=== PATIENT | male | born 1985 | race Caucasian/White ===

== ENCOUNTER → 2021-02-23 12:14 | Outpatient (BNVA) | payer OTHER, SELFPAY | PROVIDERS: PCP Internal Medicine; Visit Provider Physician Assistant | DX: S76.112A Strain of left quadriceps muscle, fascia and tendon, initial encounter (principal); X58.XXXA Exposure to other specified factors, initial encounter | CPT/HCPCS: 99203 ==

== ENCOUNTER 2022-04-20 09:58 | Emergency (ER) | payer OTHER, SELFPAY ==
--- NOTE | ~2022-04-20 | CT_ITS ---
EXAMINATION: CT ABDOMEN AND PELVIS WITHOUT CONTRAST CLINICAL INFORMATION: Bilateral lower quadrant pain. COMPARISON: CT abdomen dated from 02/06/2007. TECHNIQUE: Multidetector volumetric imaging was performed from the superior aspect of the liver through the pubic symphysis. Sagittal and coronal reformatted images were obtained on the technologist's workstation. This CT examination was performed using dose optimization techniques as appropriate, variously including the following: *Automated exposure control *Adjustment of mA and/or kV according to patient size (this includes techniques or standardized protocols for targeted exams where dose is matched to indication/reason for exam; i.e. extremities or head) *Use of iterative reconstruction technique DLP: 781 mGy-cm FINDINGS: LUNG BASES: Punctate nodule in the right lower lobe (4:107). No focal consolidation or pleural effusion. LIVER, GALLBLADDER, AND BILIARY TREE: The liver measures 20 cm craniocaudally and demonstrates decrease parenchymal attenuation, most suggestive of hepatic steatosis. No discrete focal lesions are identified in this limited noncontrast examination. Normal appearance of the gallbladder. No pericholecystic inflammatory changes. No biliary ductal dilatation. PANCREAS: Unremarkable. SPLEEN: Unremarkable. ADRENAL GLANDS: Unremarkable. KIDNEYS AND URETERS: Limited noncontrast examination. No nephrolithiasis or hydronephrosis. No significant perinephric fat stranding. BLADDER: Unremarkable. GASTROINTESTINAL TRACT: Wall thickening and significant fat stranding centered around several diverticuli in the sigmoid colon, most consistent with acute diverticulitis. No drainable collection at this time. No pneumoperitoneum. Remainder of the bowel is within normal limits. Postsurgical changes from prior appendectomy. ABDOMINAL WALL: Small bilateral fat-containing inguinal hernias. LYMPH NODES: No lymphadenopathy by size criteria. VASCULAR: Normal caliber of the abdominal aorta. PELVIC VISCERA: Normal appearance of the prostate gland and seminal vesicles. OSSEOUS STRUCTURES: No acute or aggressive appearing osseous abnormalities. CT/CT abdomen pelvis wo IV con IMPRESSION: Findings are most consistent with acute sigmoid diverticulitis. Hepatomegaly and hepatic steatosis. Punctate nodule in the right lower lobe. Assuming patient has no history of malignancy, recommend follow-up per Fleischner Society recommendations. According to the UPDATED 2017 Fleischner Society recommendations, the advised followup imaging for solid nodules < 6 mm is: LOW RISK PATIENT: No routine follow up. HIGH RISK PATIENT: Optional CT at 12 months.
[2022-04-20 11:11] VITALS: BP 138/96; PULSE 78; RESP 18; TEMP 36.6; O2SAT 99; BMI 37.4
[2022-04-20 11:31] LABS: Appearance Urine Clear; Color Urine Yellow; Glucose Urine UA Negative (Negative); Leukocyte Esterase Urine Negative (Negative); Nitrite Urine Negative (Negative); PH 5.5 (5.0-9.0); Specific Gravity - Urine 1.025 (1.005-1.025); Urine Blood Negative (Negative); Urine Ketones Negative (Negative); Urine Protein Negative (Neg-Trace)
[2022-04-20 12:58] LABS: MANUAL DIFF FLAG NO
[2022-04-20 13:17] LABS: Basophils Absolute Auto 0.1 X10*3/uL (0.0-0.2); Basophils Percent Auto 0.4 % (0-2); Eosinophils Absolute Auto 0.4 X10*3/uL (0.0-0.4); Eosinophils Percent Auto 2.9 % (0-4); Hematocrit 41.7 % (42.0-52.0); Hemoglobin 14.9 g/dl (14.0-18.0); Imm Gran Abs Auto 0.05 X10*3/uL (0.00-0.03); Imm Gran Pct Auto 0.4 % (0.0-0.4); Lymphocytes Absolute Auto 1.3 X10*3/uL (1.2-4.9); Lymphocytes Percent Auto 10.1 % (20-40); Mean Corpuscular HGB Conc 35.7 g/dl (31.0-36.0); Mean Corpuscular Hemoglobin 31.6 pg (27.0-33.0); Mean Corpuscular Volume 88.5 fL (80.0-98.0); Mean Platelet Volume 9.8 fL (9.4-12.4); Monocytes Absolute Auto 1.3 X10*3/uL (0.1-1.2); Monocytes Percent Auto 10.2 % (2-11); Neutrophils Absolute Auto 9.9 x10*3/uL (2.0-8.3); Platelet Count 192 X10*3/uL (160-400); Red Blood Count 4.71 X10*6/uL (4.60-5.80); Red Cell Distribution Width 11.6 % (11.0-16.0)
[2022-04-20 13:18] LABS: Alanine Aminotransferase 25 U/L (0-40); Albumin Level 4.2 g/dL (3.5-5.0); Alkaline Phosphatase 67 U/L (39-117); Anion Gap 13 (12-20); Aspartate Amino Transferase 15 U/L (5-37); Bilirubin Direct 0.3 mg/dL (0.0-0.5); Bilirubin Total 0.9 mg/dL (0.0-1.0); Blood Urea Nitrogen 16 mg/dL (9-16); Calcium 9.3 mg/dL (8.4-10.2); Carbon Dioxide 27 mmol/L (22-29); Chloride 104 mmol/L (96-108); Creatinine Clr Calc Pharmacy 119.6; Estimated Glomerular Filt Rate > 60; Glucose Random 97 mg/dL (60-115); Lipase 8 U/L (8-78); Potassium 4.1 mmol/L (3.3-5.1); Sodium 140 mmol/L (135-145); Total Protein 6.8 g/dL (6.5-8.0)
--- NOTE | 2022-04-20 13:38 | ED.ABDPAIN ---
HPI - Abdominal Pain General Chief Complaint: Abdominal Pain Stated Complaint: sent from Urgent care need Ct scan Time Seen by Provider: 04/20/22 11:31 Source: patient Mode of arrival: ambulatory Limitations: no limitations History of Present Illness HPI narrative: 37 yo male no PMH, no prior colonoscopy went out on Monday night for a bachelor green party - ate a steak. The next day he had diarrhea and thought it was related to the fact that he doesn't normally eat red meat. He then has had persistent loose non-bloody stools along with lower abdominal discomfort and pressure. No prior episodes of this in the past MD elicited complaint: abdominal pain Pertinent past history: none Onset (ago): day(s) (since Monday) Pain Consistency: constant Location: periumbilical Severity: mild Quality: aching and fullness Radiation: none Migration to: no migration Exacerbating factors: movement Relieving factors: nothing Associated symptoms: diarrhea and chills Related Data Previous Rx's Medication Instructions Recorded amoxicillin 875 mg-potassium 1 tab PO BID #14 tabs 04/20/22 clavulanate 125 mg tablet ondansetron 4 mg disintegrating 4 mg PO Q8H PRN nausea and 04/20/22 tablet vomiting #20 tabs Allergies Allergy/AdvReac Type Severity Reaction Status Date / Time No Known Allergies Allergy Unknown Unverified 04/23/20 16:32 Review of Systems Review of Systems Constitutional : No Weight loss, No Fever, pos Chills ENT/Mouth : No sore throat, No Rhinorrhea Eyes: No Swelling, No Redness Cardiovascular : No Chest Pain, No SOB, NoEdema Respiratory : No Cough, No Sputum, No Wheezing Gastrointestinal : no Nausea, no Vomiting, positive Diarrhea, positive abdominal Pain, No Hematochezia, No Melena Genitourinary : No Dysuria, No Urinary Frequency, No Hematuria, No Urgency Musculoskeletal : No joint pain, No Myalgias, No Joint Swelling Skin : No Skin Lesions, No rash Neuro : No Weakness, No Numbness, No Dizziness, No Headache Psych : No Anxiety/Panic, No Depression Heme/Lymph: No Bruising, No Lymphadenopathy Endocrine : No Polyuria, No Polydipsia All other systems reviewed and are negative. [facility] Past Medical History Attestation statement: The following information was validated with the patient. Medical History No pertinent past medical history Surgical History S/P appendectomy Social History Social History (Updated 04/20/22 @ 13:45 by Hillary Emerson DO) Patient Tobacco Use Status: Never used Tobacco Advance Directives: No Advance Directives Information Provided: No Physical Exam ED Vital Signs: Vital Signs - 24 hr 04/20/22 11:11 04/20/22 14:28 Temperature 97.9 F Pulse Rate 78 85 Respiratory Rate 18 16 Blood Pressure 138/96 H 137/93 H Pulse Oximetry 99 100 Oxygen Delivery Method Room Air Room Air BMI result Body Mass Index 37.4 Appearance: Alert. Oriented X3. No acute distress. Eyes: Pupils equal, round and reactive to light. ENT: Pharynx normal. Neck: Normal inspection. Neck supple. CVS: Normal heart rate and rhythm. Pulses normal. Respiratory: No respiratory distress. Breath sounds normal. Abdomen: Soft and mild lower abdominal ttp no rebound or guarding. Skin: Skin warm and dry. Normal skin color. Normal skin turgor. Extremities: No lower extremity edema. No calf ttp Neuro: Oriented X 3. No motor deficit. No sensory deficit. Course Course Course Narrative: mild pain tolerating PO can no vomiting - stable for outpatient management MDM - Abdominal Pain MDM Narrative Medical decision making narrative: 37 yo male with hx of prior appendectomy that had to be opened mid procedure due to knicking of artery - at this time the patient has lower abdominal pain and diarrhea. Will need labs, IVF, CT scan for diverticulitis/colitis. He declines pain medications Lab Data Result diagrams: 04/20/22 12:55 04/20/22 12:55 Labs: Lab Results 04/20/22 04/20/22 04/20/22 Range/Units 11:25 12:55 12:55 WBC Cancelled RBC Cancelled Hgb Cancelled Hct Cancelled MCV Cancelled MCH Cancelled MCHC Cancelled RDW Cancelled Plt Count Cancelled MPV Cancelled Immature Gran % (Auto) (0.0-0.4) % Neut % (Auto) (45-73) % Lymph % (Auto) (20-40) % [place] % (Auto) (2-11) % Eos % (Auto) (0-4) % Baso % (Auto) (0-2) % Lymph # (Auto) (1.2-4.9) X10*3/uL [place] # (Auto) (0.1-1.2) X10*3/uL Eos # (Auto) (0.0-0.4) X10*3/uL Baso # (Auto) (0.0-0.2) X10*3/uL Abs Immat Gran (auto) (0.00-0.03) X10*3/uL Absolute Neuts (auto) (2.0-8.3) x10*3/uL Absolute Nucleated RBC Cancelled Nucleated RBC % (auto) Cancelled Sodium Cancelled Potassium Cancelled Chloride Cancelled Carbon Dioxide Cancelled Anion Gap Cancelled BUN Cancelled Creatinine Cancelled Estim Creat Clear Calc Cancelled Estimated GFR Cancelled Random Glucose Cancelled Lactic Acid (0.5-2.0) mmol/L Calcium Cancelled Total Bilirubin (0.0-1.0) mg/dL Direct Bilirubin (0.0-0.5) mg/dL AST (5-37) U/L ALT (0-40) U/L Alkaline Phosphatase (39-117) U/L Total Protein (6.5-8.0) g/dL Albumin (3.5-5.0) g/dL Lipase (8-78) U/L Urine Color Yellow Urine Appearance Clear Urine pH 5.5 (5.0-9.0) Ur Specific [place] 1.025 (1.005-1.025) Urine Protein Negative (Neg-Trace) mg/dL Urine Glucose (UA) Negative (Negative) mg/dL Urine Ketones Negative (Negative) mg/dL Urine Blood Negative (Negative) Urine Nitrite Negative (Negative) Ur Leukocyte Esterase Negative (Negative) 04/20/22 04/20/22 04/20/22 Range/Units 12:55 12:55 14:23 WBC 13.0 H RBC 4.71 Hgb 14.9 Hct 41.7 L MCV 88.5 MCH 31.6 MCHC 35.7 RDW 11.6 Plt Count 192 MPV 9.8 Immature Gran % (Auto) 0.4 (0.0-0.4) % Neut % (Auto) 76.0 H (45-73) % Lymph % (Auto) 10.1 L (20-40) % [place] % (Auto) 10.2 (2-11) % Eos % (Auto) 2.9 (0-4) % Baso % (Auto) 0.4 (0-2) % Lymph # (Auto) 1.3 (1.2-4.9) X10*3/uL [place] # (Auto) 1.3 H (0.1-1.2) X10*3/uL Eos # (Auto) 0.4 (0.0-0.4) X10*3/uL Baso # (Auto) 0.1 (0.0-0.2) X10*3/uL Abs Immat Gran (auto) 0.05 H (0.00-0.03) X10*3/uL Absolute Neuts (auto) 9.9 H (2.0-8.3) x10*3/uL Absolute Nucleated RBC 0.000 Nucleated RBC % (auto) 0.0 Sodium 140 Potassium 4.1 Chloride 104 Carbon Dioxide 27 Anion Gap 13 BUN 16 Creatinine 0.92 Estim Creat Clear Calc 119.6 Estimated GFR > 60 Random Glucose 97 Lactic Acid 0.9 (0.5-2.0) mmol/L Calcium 9.3 Total Bilirubin 0.9 (0.0-1.0) mg/dL Direct Bilirubin 0.3 (0.0-0.5) mg/dL AST 15 (5-37) U/L ALT 25 (0-40) U/L Alkaline Phosphatase 67 (39-117) U/L Total Protein 6.8 (6.5-8.0) g/dL Albumin 4.2 (3.5-5.0) g/dL Lipase 8 (8-78) U/L Urine Color Urine Appearance Urine pH (5.0-9.0) Ur Specific [place] (1.005-1.025) Urine Protein (Neg-Trace) mg/dL Urine Glucose (UA) (Negative) mg/dL Urine Ketones (Negative) mg/dL Urine Blood (Negative) Urine Nitrite (Negative) Ur Leukocyte Esterase (Negative) Discharge Plan Discharge Clinical Impression: Diverticulitis Patient Disposition: Home, Self-Care Instructions: Diverticulitis (ED) Additional Instructions: return to ED for any worsening symptoms or concerns return if pain worsens, fevers, vomiting take all antibiotics eat yogurt while on antibiotic you will need to see your doctor in the next couple of weeks following that you should see a GI doctor to have a colonoscopy in the next few months. Prescriptions: New ondansetron 4 mg tablet,disintegrating 4 mg PO Q8H PRN (Reason: nausea and vomiting) Qty: 20 0RF amoxicillin-pot clavulanate 875-125 mg tablet 1 tab PO BID Qty: 14 0RF Stand Alone Forms: Work/School Release Interventions: ED Discharge Assessment Last Done: 04/20/22 15:46 Discharge Date/Time: 04/20/22 15:48
[2022-04-20 14:28] VITALS: BP 137/93; PULSE 85; RESP 16; O2SAT 100
[2022-04-20] MEDS: Piperacillin Sodium/Tazobactam 3.375 GM in 0.9 % Sodium Chloride 50 ML IV (14:40)
[2022-04-20] MEDS: 0.9 % Sodium Chloride 1,000 ML 999 ML IV (14:40)
[2022-04-20 14:52] LABS: Lactic Acid 0.9 mmol/L (0.5-2.0)
--- NOTE | 2022-04-20 15:43 | PC.NURSE ---
PT AWAKE, ALERT AND ORIENTED X 3. SKIN WARM AND DRY. C/O MILD ABD DISCOMFORT OVER THE PAST COUPLE OF DAY. NO ACUTE SYMPTOMS, WENT TO URGENT CARE AND SENT TO ED. EVALUATED BY DR MC. IV INSERTED, LABS OBTAINED. CT SCAN COMPLETED. PT RECEIVED IV ABX AND IVF. REFUSED PAIN MEDICATION WHEN OFFERED. ABDOMEN SOFT. PLAN IS FOR DC HOME.
== END 2022-04-20 15:48 | disposition home or self-care (01) ==
PROVIDERS: Emergency Medicine; Emergency Provider Emergency Medicine; PCP Internal Medicine
DX: K57.32 Diverticulitis of large intestine without perforation or abscess without bleeding (principal); R10.32 Left lower quadrant pain; Z79.899 Other long term (current) drug therapy
CPT/HCPCS: 36415; 74176; 80048; 80076; 81003; 83605; 83690; 85025; 85027; 87040; 96361; 96374; 99283; 99284; J2543

== ENCOUNTER → 2022-06-08 09:33 | Outpatient (BNVA) | payer OTHER, SELFPAY | PROVIDERS: PCP Internal Medicine; Visit Provider Physician Assistant | DX: F43.89 Other reactions to severe stress (principal) | CPT/HCPCS: 99204 ==

== ENCOUNTER 2023-05-12 09:46 | Outpatient (REF) | payer OTHER, SELFPAY | END 2023-05-12 09:47 | disposition home or self-care (01) | LOC: HO.MANLDS 09:46 | PROVIDERS: Visit Provider Physician Assistant | DX: Z00.00 Encounter for general adult medical examination without abnormal findings (principal) | CPT/HCPCS: 36415; 80053; 80061; 82306; 83036; 84443; 85025 ==

== ENCOUNTER 2023-07-28 11:13 | Outpatient (AMB) | payer OTHER, SELFPAY ==
--- NOTE | 2023-07-28 11:39 | MHC.OFFVIS ---
Intake Intake Visit Reasons: Dysuria Intake Note: New Patient is Present for Dysuria Urology Medication: None Antibiotic Allergies:None Blood Thinners: None Allergies No Known Allergies Allergy (Unknown, Verified 07/28/23 11:41) Medication List - Last Reconciled 07/28/23 by Gilson Herrera MD amoxicillin-pot clavulanate 875-125 mg 1 tab PO BID ondansetron 4 mg PO Q8H PRN HPI HPI Comments History of Present Illness Details Jacob is a pleasant male. He is a patient of . He is seen for the following urologic conditions - low libido Reported low libido Suggest baseline testosterone testing Does have high cholesterol and triglycerides at last measurement 05/29 HBA1c 4.8% PFSH Medical History No pertinent past medical history Surgical History S/P appendectomy Social History Patient Tobacco Use Status: Never used Tobacco Review of Systems Const Denies chills and Denies fever(s) Card Reports no additional complaints and Denies syncope Resp Denies cough GI Denies abdominal pain and Denies heartburn Reports as per HPI and Denies change in libido Neuro Denies syncope Psych Denies change in libido Endo Denies change in libido Physical Exam Const General: cooperative, healthy appearing, comfortable and no acute distress Orientation/consciousness: patient oriented x3 HEENT Face and sinus: Yes normal facial exam Mouth: moist mucous membranes Neck Neck: Yes normal visual inspection, Yes full ROM and Yes trachea midline Chest Chest palpation & inspection: normal inspection of the chest Resp Effort & Inspection: normal respiratory effort, able to speak in complete sentences and no respiratory distress GI Inspection: Yes normal to inspection Back/Spine/Pelvis Cervical Spine: normal cervical lordosis Thoracic/Lumbar Spine: thoracic and lumbar spine normal to inspection Skin General skin exam: no rashes or lesions noted Neuro General: patient oriented x3, gait normal, tone normal and moves all extremities Extrem General: Yes normal to inspection and Yes capillary refill normal Results AMB Urinalysis, Automated UA Leukoctes 0 Anais/uL Last Edit by BINTA Sheth on 07/28/23 11:46 UA Nitrite Negative Last Edit by Rosa Miller, RMA on 07/28/23 11:46 UA Urobilinogen 0.2 mg/dL Last Edit by Rosa Miller, RMA on 07/28/23 11:46 UA Protein 0 mg/dL Last Edit by Rosa Miller, RMA on 07/28/23 11:46 UA pH 5.5 Last Edit by Rosa Miller, RMA on 07/28/23 11:46 UA Blood 0 Red/uL Last Edit by Rosa Miller, RMA on 07/28/23 11:46 UA Specific [place] 1.025 Last Edit by Rosa Miller, RMA on 07/28/23 11:46 UA Ketone Negative Last Edit by Rosa Miller, RMA on 07/28/23 11:46 UA Bilirubin 0 mg/dL Last Edit by Rosa Miller, RMA on 07/28/23 11:46 UA Glucose 0 mg/dL Last Edit by Rosa Miller, RMA on 07/28/23 11:46 Results Reviewed Results Reviewed: Laboratory Last Values Urine pH (Auto) 5.5 07/28/23 11:42 Specific [place] (Auto) 1.025 07/28/23 11:42 Urine Protein (Auto) 0 mg/dL 07/28/23 11:42 Glucose (UA)(Auto) 0 mg/dL 07/28/23 11:42 Urine Ketones (Auto) Negative 07/28/23 11:42 Urine Blood (Auto) 0 Red/uL 07/28/23 11:42 Urine Nitrite (Auto) Negative 07/28/23 11:42 Urine Bilirubin (Auto) 0 mg/dL 07/28/23 11:42 Urine Urobilinogen (Auto) 0.2 mg/dL 07/28/23 11:42 Leukocyte Esterase (Auto) 0 Anais/uL 07/28/23 11:42 Assessment & Plan Assessment & Plan (1) Fatigue: Code(s): R53.83 - Other fatigue (2) Low libido: Code(s): R68.82 - Decreased libido Plan Lab work Orders: Orders AMB Urinalysis Automated 07/28/23 Z13.9 - Encounter for screening, unspecified Lutenizing Hormone 07/28/23 R68.82 - Decreased libido Follicle Stimulating Hormone 07/28/23 R68.82 - Decreased libido Testosterone, Free/Total 2 Weeks R68.82 - Decreased libido Testosterone, Free/Total 07/28/23 R68.82 - Decreased libido Patient Instructions: Imaging studies, laboratory and physical exam results were discussed and reviewed in detail. No major barriers to patient understanding were identified. An opportunity to ask questions regarding the treatment plan was provided. All questions were answered. The patient expressed understanding and agreement with the above treatment plan. The patient is aware they should contact our office by phone for worsening of their current condition or the appearance of new urologic symptoms. Compliance is encouraged with any medications and followup testing that is ordered. It is a privilege to participate in the urologic care of your patient. If you have any questions or concerns regarding treatment for the above conditions, or other urologic issues, please do not hesitate to contact me. The office telephone contact is [phone]. This note is constructed using voice recognition software. While every effort has been made to ensure accuracy hotel assistant manager errors may have been included. Yours sincerely, Dr Gilson Herrera MD, [facility] - Urology Providers of Expert, Compassionate Care for the Genitourinary System Coding Level of Care Code Tele New Pt Level 4 (04021) Diagnoses Fatigue R53.83 Low libido R68.82
== END 2023-07-28 12:32 | disposition home or self-care (01) ==
PROVIDERS: PCP Internal Medicine; Visit Provider Urology
DX: R53.83 Other fatigue (principal); R68.82 Decreased libido
CPT/HCPCS: 99204

== ENCOUNTER → 2023-07-28 11:13 | Outpatient (BNVA) | payer OTHER, SELFPAY | PROVIDERS: PCP Internal Medicine; Visit Provider Urology | DX: R30.0 Dysuria (principal); R68.82 Decreased libido; R53.83 Other fatigue | CPT/HCPCS: 81003 ==

== ENCOUNTER 2023-09-08 13:07 | Outpatient (AMB) | payer OTHER, SELFPAY ==
--- NOTE | 2023-09-08 13:08 | A.OFFVIS_ITS ---
Intake Intake Visit Reasons: 6w/Testosterone(set) Intake Note: Patient is Present for Telephone Follow Up Testosterone Urology Med: None Antibiotic Allergy: None Blood Thinner: None Patient is currently not on any urology medication. Patient states that this appt he will like to discuss medication options with Dr. Lopez No Known Allergies Allergy (Unknown, Verified 09/08/23 13:09) HPI HPI Comments History of Present Illness Details Jacob is a pleasant male. He is a patient of . He is seen for the following urologic conditions - low libido Telemedicine Evaluation 15 min Consultation [employer] [place] Video attempted Follow-up baseline testosterone Borderline low testosterone although normal free testosterone Extended panel testosterone evaluation Trial tadalafil Repeat labs three-month Low libido Baseline testosterone testing - 08/30 T 290 Free 11 Does have high cholesterol and triglycerides at last measurement 05/29 HBA1c 4.8% [facility] Medical History No pertinent past medical history Surgical History S/P appendectomy Social History Patient Tobacco Use Status: Never used Tobacco Review of Systems Const All systems reviewed & are unremarkable except as noted in HPI and below Reports no additional complaints Resp Reports no additional complaints GI Reports no additional complaints Reports as per HPI Musc Reports no additional complaints Physical Exam Telemedicine evaluation Appropriate responses Regular breathing rate and rhythm HEENT Head: Yes normal to inspection Ears: hearing grossly normal bilaterally Eyes General: appearance normal, both eyes and all related structures Neck Neck: Yes normal visual inspection Chest Chest palpation & inspection: normal inspection of the chest Resp Effort & Inspection: normal respiratory effort and able to speak in complete sentences Assessment & Plan Assessment & Plan (1) Low libido: Code(s): R68.82 - Decreased libido Plan Repeat labs, three-month follow-up Orders: Orders Prolactin Today R68.82 - Decreased libido Follicle Stimulating Hormone Today R68.82 - Decreased libido Prolactin 3 Months R68.82 - Decreased libido Lutenizing Hormone 3 Months R68.82 - Decreased libido Estradiol Ultra Sensitive 3 Months E29.1 - Testicular hypofunction, R68.82 - Decreased libido Testosterone, Free/Total Today R68.82 - Decreased libido Sex Hormone Binding Globulin Today R68.82 - Decreased libido Lutenizing Hormone Today R68.82 - Decreased libido Testosterone, Free/Total 3 Months R68.82 - Decreased libido Sex Hormone Binding Globulin 3 Months R68.82 - Decreased libido Lipid Panel 3 Months R68.82 - Decreased libido Medications: New tadalafil 5 mg PO DAILY 90 tabs 0RF 90 days R68.82 - Decreased libido Patient Instructions: Imaging studies, laboratory and physical exam results were discussed and reviewe d in detail. No major barriers to patient understanding were identified. An opportunity to ask questions regarding the treatment plan was provided. All questions were answered. The patient expressed understanding and agreement with the above treatment plan. The patient is aware they should contact our office by phone for worsening of their current condition or the appearance of new urologic symptoms. Compliance is encouraged with any medications and followup testing that is ordered. It is a privilege to participate in the urologic care of your patient. If you have any questions or concerns regarding treatment for the above conditions, or other urologic issues, please do not hesitate to contact me. The office telephone contact is [phone]. This note is constructed using voice recognition software. While every effort has been made to ensure accuracy insurance and benefits clerk errors may have been included. Yours sincerely, Dr Gilson Herrera MD, [facility] - Urology Providers of Expert, Compassionate Care for the Genitourinary System Telehealth Telehealth Location of provider rendering services: practice address Location of patient: address on file Patient Identification confirmed using: Name, : Yes Telehealth method: video Patient verbally consented to treatment: Yes Patient verbally consented to billing insurance company: Yes Patient informed of any privacy concerns related to visit: Yes Coding Level of Care Code Tele Est Pt Level 4 (23656) Diagnoses Low libido R68.82
== END 2023-09-08 13:51 | disposition home or self-care (01) ==
LOC: HO.HUSH 13:07
PROVIDERS: PCP Internal Medicine; Visit Provider Urology
DX: R68.82 Decreased libido (principal)
CPT/HCPCS: 99213

== ENCOUNTER → 2023-09-08 13:07 | Outpatient (BNVA) | payer OTHER, SELFPAY | PROVIDERS: PCP Internal Medicine; Visit Provider Urology ==

== ENCOUNTER 2023-12-08 08:33 | Outpatient (AMB) | payer OTHER, SELFPAY ==
--- NOTE | 2023-12-08 08:34 | A.OFFVIS_ITS ---
Intake Visit Reasons: 3m/labs(set) Intake Note: Patient is Present for Telephone Follow Up Testosterone Urology Med: Tadalafil Antibiotic Allergy: None Blood Thinner: None Electrician Yard Required: No Accompanied by: Self / Same As Patient Allergies No Known Allergies Allergy (Unknown, Verified 12/08/23 08:35) Medication List - Last Reconciled 12/08/23 by Gilson Herrera MD ondansetron 4 mg PO Q8H PRN tadalafil 5 mg PO DAILY 90 days HPI Comments Details: Jacob is a pleasant male. He is a patient of . He is seen for the following urologic conditions - low libido Telemedicine Evaluation 15 min Consultation [employer] [place] Video 40 point improvement in testosterone Continue tadalafil Has elevated LDL Discussed coronary CT calcium score which is a pay [id number] test but his father had open heart surgery at 60 Low libido Baseline testosterone testing - 08/30 T 290 Free 11, Does have high cholesterol and triglycerides at last measurement 05/29 HBA1c 4.8%, 11/28 T 320 FT 12 E2 12 SHBG 13 (LN) LH 7.0 PFSH Medical History No pertinent past medical history Surgical History S/P appendectomy Social History Patient Tobacco Use Status: Never used Tobacco Review of Systems Const All systems reviewed & are unremarkable except as noted in HPI and below Reports no additional complaints Resp Reports no additional complaints GI Reports no additional complaints Reports as per HPI Musc Reports no additional complaints Physical Exam Telemedicine evaluation Appropriate responses Regular breathing rate and rhythm HEENT Head: Yes normal to inspection Ears: hearing grossly normal bilaterally Eyes General: appearance normal, both eyes and all related structures Neck Neck: Yes normal visual inspection Chest Chest palpation & inspection: normal inspection of the chest Resp Effort & Inspection: normal respiratory effort and able to speak in complete sentences Telehealth Telehealth Telehealth Platform: [employer] Location of provider rendering services: practice address Location of patient: address on file Patient Identification confirmed using: Name, : Yes Telehealth method: video Patient verbally consented to treatment: Yes Patient verbally consented to billing insurance company: Yes Patient informed of any privacy concerns related to visit: Yes Minutes spent on Phone/Video with Pt.: 15 Assessment & Plan Assessment & Plan (1) Low libido: Code(s): R68.82 - Decreased libido Category: Medical (2) Fatigue: Code(s): R53.83 - Other fatigue Category: Medical Plan Six-month follow-up testosterone Orders: Orders Testosterone, Free/Total 6 Months R68.82 - Decreased libido Medications: Refilled tadalafil 5 mg PO DAILY 90 days 90 tabs 1RF R68.82 - Decreased libido Patient Instructions: Imaging studies, laboratory and physical exam results were discussed and reviewed in detail. No major barriers to patient understanding were identified. An opportunity to ask questions regarding the treatment plan was provided. All questions were answered. The patient expressed understanding and agreement with the above treatment plan. The patient is aware they should contact our office by phone for worsening of their current condition or the appearance of new urologic symptoms. Compliance is encouraged with any medications and followup testing that is ordered. It is a privilege to participate in the urologic care of your patient. If you have any questions or concerns regarding treatment for the above conditions, or other urologic issues, please do not hesitate to contact me. The office telephone contact is [phone]. This note is constructed using voice recognition software. While every effort has been made to ensure accuracy activities concierge errors may have been included. Yours sincerely, Dr Gilson Herrera MD, [facility] - Urology Providers of Expert, Compassionate Care for the Genitourinary System Coding Level of Care Code Tele Est Pt Level 3 (68737) Diagnoses Low libido R68.82 Fatigue R53.83
== END 2023-12-08 09:21 | disposition home or self-care (01) ==
LOC: HO.HUSH 08:34
PROVIDERS: PCP Internal Medicine; Visit Provider Urology
DX: R68.82 Decreased libido (principal); R53.83 Other fatigue
CPT/HCPCS: 99213

== ENCOUNTER → 2023-12-08 08:33 | Outpatient (BNVA) | payer OTHER, SELFPAY | PROVIDERS: PCP Internal Medicine; Visit Provider Urology ==

== ENCOUNTER 2024-06-12 11:39 | Outpatient (AMB) | payer BC, SELFPAY ==
--- NOTE | 2024-06-12 11:47 | MHC.OFFVIS ---
Intake Visit Reasons: 6m/LH/Estradiol/Testo labs(set) Intake Note: Patient is present for 6M/LH/ESTRADIOL/TESTO LABS Urology Medication:TADALAFIL Antibiotic Allergy:NONE Blood Thinner:NONE Designer/Writer Required: No Allergies No Known Allergies Allergy (Unknown, Verified 06/12/24 11:48) HPI Comments Details: Jacob is a pleasant male. He is a patient of . He is seen for the following urologic conditions - low libido Persistent symptoms low libido Did not tolerate tadalafil which caused lower back pain and leg pain Discussed LH stimulator Would boost LH and overall testosterone Enclomiphene prescribed Ten week follow-up labs Low libido Baseline testosterone testing - 08/30 T 290 Free 11, Does have high cholesterol and triglycerides at last measurement 05/29 HBA1c 4.8%, 11/28 T 320 FT 12 E2 12 SHBG 13 (LN) LH 7.0, 05/30 T 300 LH 6.9 PFSH Medical History No pertinent past medical history Surgical History S/P appendectomy Social History Patient Tobacco Use Status: Never used Tobacco Review of Systems Const Denies chills and Denies fever(s) Card Reports no additional complaints and Denies syncope Resp Denies cough GI Denies abdominal pain and Denies heartburn Reports as per HPI and Denies change in libido Neuro Denies syncope Psych Denies change in libido Endo Denies change in libido Physical Exam Const General: cooperative, healthy appearing, comfortable and no acute distress Orientation/consciousness: patient oriented x3 HEENT Face and sinus: Yes normal facial exam Mouth: moist mucous membranes Neck Neck: Yes normal visual inspection, Yes full ROM and Yes trachea midline Chest Chest palpation & inspection: normal inspection of the chest Resp Effort & Inspection: normal respiratory effort, able to speak in complete sentences and no respiratory distress GI Inspection: Yes normal to inspection Back/Spine/Pelvis Cervical Spine: normal cervical lordosis Thoracic/Lumbar Spine: thoracic and lumbar spine normal to inspection Skin General skin exam: no rashes or lesions noted Neuro General: patient oriented x3, gait normal, tone normal and moves all extremities Extrem General: Yes normal to inspection and Yes capillary refill normal Assessment & Plan Assessment & Plan (1) Hypogonadism in male: Code(s): E29.1 - Testicular hypofunction Category: Medical Plan Trial of pituitary stimulator Orders: Orders Lutenizing Hormone 2 Months E29.1 - Testicular hypofunction Testosterone, Total 2 Months E29.1 - Testicular hypofunction Patient Instructions: Imaging studies, laboratory and physical exam results were discussed and reviewed in detail. No major barriers to patient understanding were identified. An opportunity to ask questions regarding the treatment plan was provided. All questions were answered. The patient expressed understanding and agreement with the above treatment plan. The patient is aware they should contact our office by phone for worsening of their current condition or the appearance of new urologic symptoms. Compliance is encouraged with any medications and followup testing that is ordered. It is a privilege to participate in the urologic care of your patient. If you have any questions or concerns regarding treatment for the above conditions, or other urologic issues, please do not hesitate to contact me. The office telephone contact is [phone]. This note is constructed using voice recognition software. While every effort has been made to ensure accuracy records associate errors may have been included. Yours sincerely, Dr Gilson Herrera MD, [facility] - Urology Providers of Expert, Compassionate Care for the Genitourinary System Coding Level of Care Code Est Pt Level 4 (17748) Diagnoses Hypogonadism in male E29.1
== END 2024-06-12 12:28 | disposition home or self-care (01) ==
LOC: HO.HUSH 11:39
PROVIDERS: PCP Internal Medicine; Visit Provider Urology
DX: E29.1 Testicular hypofunction (principal)
CPT/HCPCS: 99214

== ENCOUNTER → 2024-06-12 11:39 | Outpatient (BNVA) | payer BC, SELFPAY | PROVIDERS: PCP Internal Medicine; Visit Provider Urology ==

== ENCOUNTER 2024-08-22 08:58 | Outpatient (AMB) | payer BC, SELFPAY ==
--- NOTE | 2024-08-22 08:58 | A.OFFVIS_ITS ---
Intake Visit Reasons: 10w/labs(set) Intake Note: Patient is present for 10W/LABS Urology Medication:NONE Antibiotic Allergy:NONE Blood Thinner:NONE Irrigation Laborer Required: No Allergies No Known Allergies Allergy (Unknown, Verified 08/22/24 08:58) HPI Comments Details: Jacbo is a pleasant male. He is a patient of . He is seen for the following urologic conditions - low libido Telemedicine Evaluation 15 min Consultation [facility] [place] [facility] Ten week follow-up testosterone booster Appropriate response 08/31 T 600 FT 24 Has noticed some gain in water weight Does notice more energy and increased muscle density Continue medications Low libido Baseline testosterone testing - 08/30 T 290 Free 11, Does have high cholesterol and triglycerides at last measurement 05/29 HBA1c 4.8%, 11/28 T 320 FT 12 E2 12 SHBG 13 (LN) LH 7.0, 05/30 T 300 LH 6.9 PFSH Medical History No pertinent past medical history Surgical History S/P appendectomy Social History Patient Tobacco Use Status: Never used Tobacco Review of Systems Const All systems reviewed & are unremarkable except as noted in HPI and below Reports no additional complaints Resp Reports no additional complaints GI Reports no additional complaints Reports as per HPI Musc Reports no additional complaints Physical Exam Telemedicine evaluation Appropriate responses Regular breathing rate and rhythm HEENT Head: Yes normal to inspection Ears: hearing grossly normal bilaterally Eyes General: appearance normal, both eyes and all related structures Neck Neck: Yes normal visual inspection Chest Chest palpation & inspection: normal inspection of the chest Resp Effort & Inspection: normal respiratory effort and able to speak in complete sentences Telehealth Telehealth Location of provider rendering services: practice address Location of patient: address on file Patient Identification confirmed using: Name, : Yes Telehealth method: voice only Patient verbally consented to treatment: Yes Patient verbally consented to billing insurance company: Yes Patient informed of any privacy concerns related to visit: Yes Assessment & Plan Assessment & Plan (1) Hypogonadism in male: Code(s): E29.1 - Testicular hypofunction Category: Medical Plan Six-month follow-up Refill prescription Orders: Orders Prostate Specific Antigen 6 Months E29.1 - Testicular hypofunction Testosterone, Total 6 Months E29.1 - Testicular hypofunction Patient Instructions: Imaging studies, laboratory and physical exam results were discussed and reviewed in detail. No major barriers to patient understanding were identified. An opportunity to ask questions regarding the treatment plan was provided. All questions were answered. The patient expressed understanding and agreement with the above treatment plan. The patient is aware they should contact our office by phone for worsening of their current condition or the appearance of new urologic symptoms. Compliance is encouraged with any medications and followup testing that is ordered. It is a privilege to participate in the urologic care of your patient. If you have any questions or concerns regarding treatment for the above conditions, or other urologic issues, please do not hesitate to contact me. The office telephone contact is [phone]. This note is constructed using voice recognition software. While every effort has been made to ensure accuracy pharmacy aide errors may have been included. Yours sincerely, Dr Gilson Herrera MD, [facility] - Urology Providers of Expert, Compassionate Care for the Genitourinary System Coding Level of Care Code Tele Est Pt Level 3 (44389) Diagnoses Hypogonadism in male E29.1
--- OUTSIDE RECORDS SUMMARY | 2024-08-22 09:36 | XMS_ITS | Data Portability ---
Author Organization [facility] Address [address] [place] [address] Assessment No assessment recorded. Plan of Treatment Reminders Order Date Submit Date Provider Last Modified By Organization Details Last Modified Time Details Appointments ANNUAL EXAM 2024 09:00A LONNIE LEDEZMA Not available Not available Not available Lab CBC w/ auto diff 2019 [facility], [address] [place] [address], [id number], 01/18/2020 11:15:59 CMP, serum or plasma 2019 020 [facility], [address] [place] [address], [id number], 01/18/2020 11:15:59 lipid panel, blood 2019 020 [facility], [address] [place] [address], [id number], 01/18/2020 11:15:59 CMP, serum or plasma 2021 022 [facility], [address] [place] [address], [id number], 05/11/2022 10:30:52 lipid panel, blood 2021 022 [email or web address] 10 [facility], [address] [place] [address], [id number], 05/18/2022 09:03:00 CBC w/ auto diff 2021 022 [facility], [address] [place] [address], [id number], 05/11/2022 10:30:52 CMP, serum or plasma 2022 023 [facility], [address] [place] [address], [id number], 05/15/2023 11:19:55 lipid panel, blood 2022 023 [facility], [address] [place] [address], [id number], 05/12/2023 09:32:09 CBC w/ auto diff 2022 023 [facility], [address] [place] [address], [id number], 05/12/2023 09:32:08 hemoglobi n A1c, QN, blood 2022 023 [facility], [address] [place] [address], [id number], 05/12/2023 09:32:09 PSA, total + free, serum or plasma 2022 023 [facility], [address] [place] [address], [id number], 05/12/2023 09:32:09 vitamin D, 25-hydrox y, total, serum 2022 023 [facility], [address] [place] [address], [id number], 05/12/2023 09:32:08 TSH + free T4, serum 2022 023 [facility], [address] [place] [address], [id number], 05/12/2023 09:32:09 Referral gastroent erologist referral 2021 022 [email or web address] 10 Jacob Deluna MD, [address] [place], [address], 05/04/2022 09:53:36 Procedures None recorded. Surgeries None recorded. Imaging None recorded. Medication Orders None recorded. Patient TargetsNo targets recorded. Patient InstructionsNo instructions recorded. 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 Problems Name Problem SNOMED Code Status Onset Date Resolution Date Notes Provider Name and Address Organization Details Recorded Time Hearing loss of right ear 326229612 Active 2018 JOEL Michel [address] [place] [address], [id number], [facility] 9 09:20:59 Colitis 46629942 Active 2021 LONNIE PIMENTEL [address] [place] [address], [address], [facility] 2 17:04:03 Anxiety 78585040 Active 2021 LONNIE PIMENTEL [address] [place] [address], [address], [facility] 2 17:25:24 Gout 93353803 Active 2022 LONNIE PIMENTEL [address] [place] [address], [address], [facility] 3 09:22:18 Dysuria 74383597 Active 2022 LONNIE PIMENTEL [address] [place] [address], [address], [facility] 3 10:39:46 Hypotesto steronism 721769994905 4 Active 2023 Basim Duran DO [address] [place] [address], [phone], [facility] 4 21:45:15 Diverticu losis of colon 168177859 Active 2023 LONNIE PIMENTEL [address] [place], [address], [facility] 4 14:09:31 Impaired fasting glycemia 506800649 Active 2017 MariluANDRE mcdonald [address] [place], [address], [facility] 8 11:19:30 Mixed hyperlipi demia 503303623 Active 2017 [facility] [address], [address], [facility] 8 11:19:31 Problem Notes None recorded. Procedures Surgical History Date Name Laterality Status Provider Name and Address Organization Details Recorded Time 08/07/19 08 Appendectomy completed Carly [facility] [address], [address], [facility] 12/13/2017 12:04:43 Imaging Results None recorded. Procedure Notes None recorded. Medical Equipment None Reported. Allergies No known drug allergies Medications Name Sig Start Date Stop Date Status Note LastModified by Organization Details LastModified Time azithromyci n 250 mg tablet TAKE 2 TABLETS BY MOUTH FOR 1 DAY THEN TAKE 1 TABLET BY MOUTH DAILY FOR 4 DAYS 05/27 completed Not Available Not Available Not Available penicillin V potassium 500 mg tablet 05/27 completed Not Available Not Available Not Available ciprofloxac in 500 mg tablet TAKE 1 TABLET BY MOUTH EVERY 12 HOURS FOR 10 DAYS 05/27 completed Not Available Not Available Not Available indomethaci n 50 mg capsule TAKE 1 CAPSULE BY MOUTH THREE TIMES DAILY FOR 10 DAYS NEEDED 05/27 completed Not Available Not Available Not Available ibuprofen 600 mg tablet 12/13 completed Not Available Not Available Not Available colchicine 0.6 mg tablet 1.2 mg PO x1, then 0.6 mg PO 1h later x1 01/16 completed Not Available Not Available Not Available ondansetron 4 mg disintegrat ing tablet DISSOLVE 1 TABLET ON THE TONGUE EVERY 8 HOURS NEEDED FOR NAUSEA OR VOMITING 05/02 completed Not Available Not Available Not Available amoxicillin 875 mg-potassiu m clavulanate 125 mg tablet TAKE 1 TABLET BY MOUTH EVERY 12 HOURS FOR 5 DAYS 05/27 completed Not Available Not Available Not Available tadalafil 5 mg tablet TAKE 1 TABLET BY MOUTH EVERY DAY active Not Available Not Available No t Available Vitals Date Recorded Body height Body mass index (BMI) Body weight Heart rate Oxygen saturation Oxygen saturation in Arterial blood by Pulse oximetry Systolic blood pressure Diastolic blood pressure Provider Name and Address Organization Details Last Updated DateTime 0 163.83 cm 36.9 kg/m2 54149.5 7 g 65 /min 98 % 98 % 100 mm[Hg] 72 mm[Hg] Vivienne Quiles [facility] 0 09:08:29 Date Recorded Body height Oxygen saturation Oxygen saturation in Arterial blood by Pulse oximetry Heart rate Systolic blood pressure Diastolic blood pressure Provider Name and Address Organization Details Last Updated DateTime 2 163.83 cm 97 % 97 % 81 /min 120 mm[Hg] 78 mm[Hg] Mae Reed [facility] 2 16:49:28 Date Recorded Body height Body mass index (BMI) Body weight Oxygen saturation Oxygen saturation in Arterial blood by Pulse oximetry Heart rate Systolic blood pressure Diastolic blood pressure Provider Name and Address Organization Details Last Updated DateTime 2 163.83 cm 38.9 kg/m2 564825. 68 g 99 % 99 % 81 /min 110 mm[Hg] 70 mm[Hg] Mae Reed [facility] 2 10:07:57 Date Recorded Body height Body mass index (BMI) Body weight Heart rate Oxygen saturation Oxygen saturation in Arterial blood by Pulse oximetry Systolic blood pressure Diastolic blood pressure Provider Name and Address Organization Details Last Updated DateTime 3 165.1 cm 38.3 kg/m2 051414. 25 g 64 /min 98 % 98 % 110 mm[Hg] 80 mm[Hg] Livia Rousseau [facility] 3 09:07:32 Date Recorded Body height Body mass index (BMI) Body weight Heart rate Oxygen saturation Oxygen saturation in Arterial blood by Pulse oximetry Systolic blood pressure Diastolic blood pressure Provider Name and Address Organization Details Last Updated DateTime 4 165.1 cm 39.9 kg/m2 290609. 17 g 71 /min 97 % 97 % 126 mm[Hg] 88 mm[Hg] Chantal Velasquez [facility] 09:03:45 Social History Question Answer Notes LastModified by [employer] Details LastModified Time Tobacco Smoking Status Never Smoker Juliette Jesus alex [facility] 12/13/2017 11:54:12 What Is Your Level Of Alcohol Consumption? Occasional Information not available 04/17/2018 What Is Your Level Of Caffeine Consumption? Occasional 2 Cups Coffee Per Day Information not available 04/17/2018 What Was The Date Of Your Most Recent Tobacco Screening? 05/27/2024 [email or web address] Information not available 05/27/2024 Do You Or Have You Ever Used Any Other Forms Of Tobacco Or Nicotine? No Information not available 05/12/2023 Sex: Unknown Functional Status Question Answer Note LastModified by [employer] Details LastModified Time What is your exercise level? Moderate gym 4 days per week Information not available 04/17/2018 Mental Status None recorded. Family History Relationship Description Onset Age of this Age Resolved Age Notes LastModified by Organization Details LastModified Time Father Myocardial infarction 59 cabg x 4 Not available 12/13/2017 12:03:18 Paternal Grandfather Coronary arterioscler osis 80 cabg x 4 Not available 12/13/2017 12:03:51 Medical History Condition Response Coronary Artery Disease N Gout N Kidney Stones N Blood Diseases N Hyperthyroidism N Breast Cancer N Blood Transfusion Y Lung Disease N Hypothyroidism N Depression N COPD N Defects or Inherited Disease Y Difficulty Swallowing N Anesthesia Complications N Meniere's disease N Anxiety Disorder N Muscle, Joint, or Bone Problems N Vision or Eye Problems N Arthritis N Infertility N Mental Disorder N Cancer N Varicosities N Stroke N Bladder or Kidney Problems N High Cholesterol N Liver Disease N Headaches N Fibromyalgia N Kidney Disease N Allergies/Hayfever Y Heart Problems N Hospitalizations Y Thyroid Problems N GI Problems N Skin Problems N Eating Disorder N Anemia N MRSA exposure N Constipation N Mental Illness N Diabetes N Seizures/Epilepsy N Tuberculosis N Congestive Heart Failure (CHF) N Eczema N Diverticulitis N Abuse/Domestic Violence N Asthma N Reflux/GERD N Hepatitis N Heart Disease N Pulmonary Embolism N Hypertension N Chronic Ear Infections N Chicken Pox Y Autism Spectrum Disorder (ASD) N Thrombophilias N Immunizations Vaccine Type Date Status Note Provider Mario walters and Address Organization Details Recorded Time Tdap 08/07/2018 completed Carly JOEL Michel [address] [place] [address], [address], [facility] 01/14/2019 09:11:03 Past Encounters Encounter ID Performer Location Encounter Start Date Encounter Closed Date Diagnosis/Indication Diagnosis SNOMED-CT Code Diagnosis ICD10 Code Diagnosis Note 2004 Marilu ANDRELORIN [facility] [address] [place] [address],[place] [address] 12/13/2017 11:29:48 12/13/2017 14:42:01 Pain of left ankle joint 8446349700 6352600 M25.572 will do xr and consider ortho if xr is normal Family his tory of ischemic heart disease 136726465 Z82.49 will get routine blood work Serous otitis media 8032 7007 H65.90 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, scales inspector Allergic rhinitis 646236 04 J30.9 would like to consider allergy shots [id number] [address] [place] [address],[place] [address] 01/12/2018 09:31:14 01/12/2018 10:36:29 Impaired fasting glycemia 362094969 R73.01 diet and exercise discussed for 30 minutes Mixed hyperlipidemia 267 560233 E78.2 diet and exercise discussed for 30 minutes fish oil mediterran chet diet discussed [id number] Basim Duran DO [facility] [address] [place] [address],[place] [address] 04/17/2018 10:48:58 04/17/2018 11:56:15 Adult health examination 774850510 Z00.01 has evidence of subjective hearing loss otherwise is doing well cont to lose weight but is trying for 200 Active or passive immunization 490578300 Z23 need to get tdap in october Hearing loss 16542289 H9 0.11 was sched in past but no followup or was not given date for appt [id number] Carly Marilu [facility] [address] [place] [address],[place] [address] 07/16/2018 08:45:57 07/16/2018 09:26:25 Impaired fasting glycemia 522617711 R73.01 continue healthy diet and exercise Mixed hyperlipidemia 267 959604 E78.2 cholestero l slightly worse than prior labs in december with an improvemen t of HDL from 41 to 45 continue healthy diet, fish oil, mediterran chet diet discussed Body mass index 30+ - obesity 331170105 Z68.36 has lost weight about 10lbs from january per last visit, he is trying to reach 200 lbs [id number] November [facility] [address] [facility] [place] [address] 01/14/2019 08:54:31 01/14/2019 10:04:00 Adult health examination 661405694 Z00.00 Active or passive immunization 492963586 Z23 utd Body mass index 30+ - obesity 703781159 Z68.36 has lost weight about 10 lbs from january per last visit, he is trying to reach 200 lbs Mixed hyperlipidemia 267 267117 E78.2 has been eating healthy Impaired f asting glycemia 045695562 R73.01 continue healthy diet and exercise [id number] November [facility] [address] [place] [address] it[address] [facility] [place] [address] 04/26/2019 10:52:43 04/26/2019 11:23:01 Pain in toe 717660961 M79.675 [id number] LONNIE PIMENTEL [facility] [address] [place] [address] [place] [address] 01/17/2020 08:53:06 01/17/2020 10:53:47 Adult health examination 211327932 Z00.00 no concerns today BP is excellent today Active or passive immunization 842567691 Z23 up to date [id number] LONNIE PIMENTEL [facility] [address] [place] [address] [place] [address] 05/02/2022 16:11:52 05/03/2022 08:24:49 Colitis 23254239 K52.838 did advise a colonoscop y Anxiety 46203351 F41.1 would just like have this documented discussed coping strategies [id number] LONNIE PIMENTEL [facility] [address] [facility],[place] [address] 05/11/2022 10:01:25 05/11/2022 10:44:56 Active or passive immunization 818863793 Z23 up to date Adult heal th examination 839342260 Z00.00 no concerns today BP is excellent today [id number] LONNIE PIMENTEL [facility] [address] [facility],[place] [address] 05/12/2023 08:56:37 05/12/2023 11:13:57 Mixed hyperlipidemia 461427137 E78.2 stable Adult heal th examination 789556896 Z00.00 no concerns today BP is excellent today [id number] LONNIE PIMENTEL [facility] [address] [facility],[place] [address] 05/27/2024 08:51:38 05/27/2024 09:48:32 Active or passive immunization 071211563 Z23 up to date Adult heal th examination 289309819 Z00.00 no concerns today BP is excellent today Depression screening 171 333155 Z13.31 SCREENING NEGATIVE Body mass index 30+ - obesity 609832427 Z68.39 discussed optionssee ing uro soon, possible HRT with T which could helpwill fu with uro before moving forward with any issues Health Concerns Section Related Observation LastModified by Organization Detai ls LastModified Time None Recorded Concern Status LastModified by Organization Details LastModified Time None Recorded Advance Directives Directive None Recorded Payers Encounter Date Sequence Insurance Name Policy Number Policy Lowery Covered Member ID Lowery Member ID Guarantor Name 01/17/2020 1 [facility] [id number] Jacob South [id number] Jacob South 05/02/2022 1 [facility] [id number] Jacob South [id number] Jacob South 05/11/2022 1 [facility] [id number] Jacob South [id number] Jacob South 05/12/2023 [facility] [id number] Jacob South [id number] Jacob South 05/27/2024 1 [facility] [id number] Jacob South [id number] Jacob South Notes Date Note Type Note Provider Name a nd Address Organization Details Recorded Time 0 text/html Annual WellnessReported bypatient.Diet and Nutrition:discussed vitamin and supplement use; discussed portion control; discussed maintaining calcium balance; discussed diet improvement; eating habits good, no concerns Fracture Risk:no history of fractures; no recent explained fracture; no sudden unexplained fractures; no previous musculoskeletal injuries Physical Activity:exercises on a regular basis; recent increase in physical activity; good physical condition; patient lifts weights Additional Lifestyle Factors:no tobacco use; drinks alcohol (mild-moderate) (socially) Depression Risk:never feels sad, empty, or tearful; no loss of interest in activities; no significant changes in weight; no sleep disturbances or insomnia; no agitation; no loss of energy; no feelings of worthlessness or guilt; no thoughts of suicide; no history of depression; no history of mood disorders Hearing:loss of hearing in one ear only(lost 60% of hearing right ear) Vision:no vision problems LONNIE PIMENTEL [address] [place] [address], [address], [facility] 01/17/2020 09:28:30 2 text/html ER f/u the patient reports that when in the ER the originally thought he had an inter-abdominal abscess which would need a drain and surgeryhowever, it was a colitis, start on abx and d/c augmentin and ondansetron which he since started the patient reports that the originally thought it was due to his dietthe patient did have a steak (which is rare for the patient) this weekend at his friend's bachelor constitution party the patient developed abdominal pain and hematocheziatwo drinks nothing abnormal or concerning discussed stress affects on his person due to his jobdiscussed an event at work that happened to him that has changed the way that he processes stress, which is poorer since that incident discussed the stresses at work that are probable causing more of the abdominal upsetdiscussed coping mechanisms LONNIE PIMENTEL [address] [place] [address], [address], [facility] 05/02/2022 17:34:45 text/html Annual WellnessReported bypatient.Diet and Nutrition:healthy diet; discussed vitamin and supplement use; discussed portion control; discussed maintaining calcium balance; discussed diet improvement; been doing a bland diet like we talked about at his last appointment Fracture Risk:no history of fractures; no recent explained fracture; no sudden unexplained fractures; no previous musculoskeletal injuries; no changes from last year Physical Activity:exercises on a regular basis; recent increase in physical activity; good physical condition; discussed weightbearing activities; discussed exercise habits Additional Lifestyle Factors:no tobacco use; drinks alcohol (mild-moderate) Depression Risk:never feels sad, empty, or tearful; no loss of interest in activities; no significant changes in weight; no sleep disturbances or insomnia; no agitation; no loss of energy; no feelings of worthlessness or guilt; no thoughts of suicide; no history of depression; no history of mood disorders Hearing:loss of hearing in one ear only(right) Vision:no vision problems LONNIE PIMENTEL [address] [place] [address], [address], [facility] 05/11/2022 10:35:34 text/html Annual WellnessReported bypatient.Diet and Nutrition:healthy diet; discussed vitamin and supplement use; discussed portion control; discussed maintaining calcium balance; discussed diet improvement Fracture Risk:no history of fractures; no recent explained fracture; no sudden unexplained fractures; no previous musculoskeletal injuries Physical Activity:exercises on a regular basis; recent increase in physical activity; good physical condition; discussed weightbearing activities; discussed exercise habits Additional Lifestyle Factors:no tobacco use; drinks alcohol (mild-moderate) Depression Risk:never feels sad, empty, or tearful; no loss of interest in activities; no significant changes in weight; no sleep disturbances or insomnia; no agitation; no loss of energy; no feelings of worthlessness or guilt; no thoughts of suicide; no history of depression; no history of mood disorders Hearing:no loss of hearing Vision:no vision problems left ankle pain, improving will update me adrenal fatigue possiblysent in referral for endo, has an appointment LONNIE PIMENTEL [address] [place], [address], [facility] 05/12/2023 09:33:53 4 text/html Annual WellnessReported bypatient.Diet and Nutrition:healthy diet; discussed vitamin and supplement use; discussed portion control; discussed maintaining calcium balance; discussed diet improvement Fracture Risk:no history of fractures; no recent explained fracture; no sudden unexplained fractures; no previous musculoskeletal injuries Physical Activity:exercises on a regular basis; recent increase in physical activity; good physical condition Additional Lifestyle Factors:no tobacco use; no alcohol intake Depression Risk:never feels sad, empty, or tearful; no loss of interest in activities; no significant changes in weight; no sleep disturbances or insomnia; no agitation; no loss of energy; no feelings of worthlessness or guilt; no thoughts of suicide; no history of depression; no history of mood disorders Hearing:no loss of hearing Vision:no vision problems; wears glasses the patient has a vagal episode this summerthe patient did not have any cardiac findings the patient reports that he had diverticulitis same week, could have been relatednoted that he was dehydrated per [facility] still feeling offeating a very good diet and exercisingno improvement with weight; seeing Dr. Herreraactually up ten pounds seeing urologist (not endo) about this ongoing issuewithout much changecurrently on tadalafil LONNIE PIMENTEL [address] [place] [address], [place], [address], [facility] 05/27/2024 09:47:54
--- OUTSIDE RECORDS SUMMARY | 2024-08-22 09:36 | XMS_ITS | Continuity of Care Document ---
Author Organization [facility], [facility] Address [address] [place], [place] [address] [address] [place] [address] Assessment No assessment recorded. Plan of Treatment Reminders Order Date Submit Date Provider Last Modified By Organization Details Last Modified Time Details Appointments ANNUAL EXAM 2024 09:00A M LONNIE PIMENTEL Not available Not available Not available Lab None recorded . Referral None recorded . Procedures None recorded . Surgeries None recorded . Imaging None recorded . Medication Orders None recorded . Patient TargetsNo targets recorded. Patient InstructionsNo instructions recorded. Reason for Referral None Reported. Problems Name Problem SNOMED Code Status Onset Date Resolution Date Notes Provider Name and Address Organization Details Recorded Time Hearing loss of right ear 030966352 Active 2018 JOEL Michel [address] [place] [address], [phone], [facility] 9 09:20:59 Colitis 94453989 Active 2021 LONNIE PIMENTEL [address] [place] [address], [phone], [facility] 2 17:04:03 Anxiety 65371949 Active 2021 LONNIE PIMENTEL [address] [place] [address], [phone], [facility] 2 17:25:24 Gout 68319246 Active 2022 LONNIE PIMENTEL [address] [place] [address], [phone], [facility] 3 09:22:18 Dysuria 56080073 Active 2022 LONNIE PIMENTEL [address] [place] [address], [address], [facility] 3 10:39:46 Hypotesto steronism 648923640716 4 Active 2023 Basim Duran DO [address] [place], [address], [facility] 4 21:45:15 Diverticu losis of colon 298220030 Active 2023 LONNIE PIMENTEL [address] [place] [address], [phone], [facility] 4 14:09:31 Impaired fasting glycemia 904466130 Active 2017 ANDRE MichelLORIN [address] [place] [address], [address], [facility] 8 11:19:30 Mixed hyperlipi demia 823704983 Active [address], [address], [facility] 8 11:19:31 Problem Notes None recorded. Procedures Surgical History Date Name Laterality Status Provider Name and Address Organization Details Recorded Time 08/07/19 08 Appendectomy completed November ANDRE MichelLORIN [address] [place] [address], [phone], [facility] 12/13/2017 12:04:43 Imaging Results None recorded. Procedure [...] Updated DateTime 4 165.1 cm 39.9 kg/m2 634516. 17 g 71 /min 97 % 97 % 126 mm[Hg] 88 mm[Hg] Chantal Velasquez [facility] 4 09:03:45 Social History Question Answer Notes LastModified by [employer] Details LastModified Time Tobacco Smoking Status Never Smoker Julitete johnson [facility] 12/13/2017 11:54:12 What Is Your [...] Other Forms Of Tobacco Or Nicotine? No [email or web address] Information not available 05/12/2023 Sex: Unknown Functional Status Question Answer Note LastModified by [employer] Details LastModified Time What is your exercise [...] Stones N Blood Diseases N Hyperthyroidism N Blood Transfusion Y Breast Cancer N COPD N Depression N Lung Disease N Hypothyroidism N Defects or Inherited Disease Y Difficulty [...] Y Thyroid Problems N GI Problems N Eating Disorder N Skin Problems N Anemia N MRSA exposure N Constipation N Mental Illness N Diabetes N Seizures/Epilepsy N Tuberculosis N Congestive Heart Failure (CHF) N Eczema N Abuse/Domestic Violence N Diverticulitis N Asthma N Reflux/GERD N Hepatitis N Heart Disease N Pulmonary Embolism N Chronic Ear Infections N Hypertension N Chicken Pox Y Autism Spectrum Disorder (ASD) N Thrombophilias N Immunizations Vaccine Type Date Status Note Provider Mario walters and Address Organization Details Recorded Time Tdap 08/07/2018 completed November JOEL Michel [address] [place], [address], [facility] 01/14/2019 09:11:03 Past Encounters Encounter ID Performer Location Encounter Start Date Encounter Closed Date Diagnosis/Indication Diagnosis SNOMED-CT Code Diagnosis ICD10 Code Diagnosis Note [id number] LONNIE PIMENTEL [facility] [address] [facility] [facility] [place] [address] 05/27/2024 08:51:38 05/27/2024 09:48:32 Active or passive immunization 829639694 Z23 up to date Adult heal th examination 574731222 Z00.00 no concerns today BP is excellent today Depression screening 171 835467 Z13.31 SCREENING NEGATIVE Body mass index 30+ - obesity 543870261 Z68.39 discussed optionssee ing uro soon, possible HRT with T which could helpwill fu with uro before moving forward with any issues Health Concerns Section Related Observation LastModified by Organization Detai ls LastModified Time None Recorded Concern Status LastModified by Organization Details LastModified Time None Recorded Payers Encounter Date Sequence Insurance Name Policy Number Policy Lowery Covered Member ID Lowery Member ID Guarantor Name 05/27/2024 1 [place] [facility] [place] [place] [id number] Jacob South [id number] Jacob South Notes Date Note Type Note Provider Name a nd Address Organization Details Recorded Time 4 text/html Annual WellnessReported bypatient.Diet and Nutrition:healthy [...] been relatednoted that 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 Herreraactually up ten pounds seeing urologist (not endo) about this ongoing issuewithout much changecurrently on tadalafil LONNIE PIMENTEL [address] [place] [address], [place], [address], [facility] 05/27/2024 09:47:54
== END 2024-08-22 09:37 | disposition home or self-care (01) ==
LOC: HO.HUSH 08:58
PROVIDERS: PCP Internal Medicine; Visit Provider Urology
DX: E29.1 Testicular hypofunction (principal)
CPT/HCPCS: 99213

== ENCOUNTER 2025-02-12 08:25 | Outpatient (AMB) | payer BC, SELFPAY ==
--- NOTE | 2025-02-12 08:25 | A.OFFVIS_ITS ---
Intake Visit Reasons: 6m follow up/labs(lab?) Intake Note: Patient is present for 6M/LABS Urology Medication:NONE Antibiotic Allergy:NONE Blood Thinner:NONE Allergies No Known Allergies Allergy (Unknown, Verified 02/12/25 08:26) HPI Comments Details: Jacob is a pleasant male. He is a patient of . He is seen for the following urologic conditions - low libido Telemedicine Evaluation 15 min Consultation [facility] [place] [facility] Six-month labs - E to an LH remain in range. Testosterone pending has been sent to [facility]. Clinically still doing well 08/31 T 600 FT 24 Has noticed some gain in water weight Does notice more energy and increased muscle density Continue medications Low libido Baseline testosterone testing - 08/30 T 290 Free 11, 01/29 E2 30 LH 7.5 T pending Does have high cholesterol and triglycerides at last measurement 05/29 HBA1c 4.8%, 11/28 T 320 FT 12 E2 12 SHBG 13 (LN) LH 7.0, 05/30 T 300 LH 6.9 PFSH Medical History No pertinent past medical history Surgical History S/P appendectomy Social History Patient Tobacco Use Status: Never used Tobacco Review of Systems Const All systems reviewed & are unremarkable except as noted in HPI and below Reports no additional complaints Resp Reports no additional complaints GI Reports no additional complaints Reports as per HPI Musc Reports no additional complaints Physical Exam Telemedicine evaluation Appropriate responses Regular breathing rate and rhythm HEENT Head: Yes normal to inspection Ears: hearing grossly normal bilaterally Eyes General: appearance normal, both eyes and all related structures Neck Neck: Yes normal visual inspection Chest Chest palpation & inspection: normal inspection of the chest Resp Effort & Inspection: normal respiratory effort and able to speak in complete sentences Telehealth Telehealth Telehealth Platform: [facility] Location of provider rendering services: practice address Location of patient: address on file Patient Identification confirmed using: Name, : Yes Telehealth method: video Patient verbally consented to treatment: Yes Patient verbally consented to billing insurance company: Yes Patient informed of any privacy concerns related to visit: Yes Minutes spent on Phone/Video with Pt.: 15 Assessment & Plan Assessment & Plan (1) Hypogonadism in male: Code(s): E29.1 - Testicular hypofunction Category: Medical (2) Low libido: Code(s): R68.82 - Decreased libido Category: Medical Plan Six-month follow-up testosterone lab Orders: Orders Prostate Specific Antigen 5 Months E29.1 - Testicular hypofunction Testosterone, Total 5 Months E29.1 - Testicular hypofunction Complete Blood Count no Diff 5 Months E29.1 - Testicular hypofunction Medications: New [enclomiphene] [facility] - Patient Cell Number - [phone] 1 tab PO DAILY 90 tabs 1RF 90 days E29.1 - Testicular hypofunction Patient Instructions: This note is constructed using voice recognition software. While every effort has been made to ensure accuracy instrument processing tech errors may have been included. Imaging studies, laboratory and physical exam results were discussed and reviewed in detail. No major barriers to patient understanding were identified. An opportunity to ask questions regarding the treatment plan was provided. All questions were answered. The patient expressed understanding and agreement with the above treatment plan. The patient is aware they should contact our office by phone for worsening of their current condition or the appearance of new urologic symptoms. Compliance is encouraged with any medications and followup testing that is ordered. It is a privilege to participate in the urologic care of your patient. If you have any questions or concerns regarding treatment for the above conditions, or other urologic issues, please do not hesitate to contact me. The office telephone contact is [phone]. Sincerely, Dr Gilson Herrera MD, [facility] - Urology Compassionate Specialist Care for the Genitourinary System Coding Level of Care Code Tele Est Pt Level 3 (30373) Diagnoses Hypogonadism in male E29.1 Low libido R68.82
--- OUTSIDE RECORDS SUMMARY | 2025-02-12 08:34 | XMS_ITS | Data Portability ---
Author Organization [facility], Telehealth Patient Home Address [address] [place] [address] Assessment No assessment recorded. Plan of Treatment Reminders Order Date Submit Date Provider Last Modified By Organization Details Last Modified Time Details Appointments ANNUAL EXAM 2024 09:00A M LONNIE PIMENTEL Not available Not available Not available Lab CMP, serum or plasma 2022 023 [facility], [address] [place] [address], [id number], 05/15/2023 11:19:55 lipid panel, blood 2022 023 [facility], [address] [place] [address], [id number], 05/12/2023 09:32:09 CBC w/ auto diff 2022 023 [facility], [address] [place] [address], [id number], 05/12/2023 09:32:08 hemoglobi n A1c, QN, blood 2022 023 [facility], [address] [place] [address], [id number], 05/12/2023 09:32:09 PSA, total + free, serum or plasma 2022 023 [facility], [address] [place] [address], [id number], 05/12/2023 09:32:09 vitamin D, 25-hydrox y, total, serum 2022 023 [facility], [address] [place] [address], [address], 05/12/2023 09:32:08 TSH + free T4, serum 2022 023 [facility], [address] [place] [address], [id number], 05/12/2023 09:32:09 CMP, serum or plasma 2021 022 [facility], [address] [place] [address], [id number], 05/11/2022 10:30:52 lipid panel, blood 2021 022 [email or web address] 10 [facility], [address] [place] [address], [id number], 05/18/2022 09:03:00 CBC w/ auto diff 2021 022 [facility], [address] [place] [address], [id number], 05/11/2022 10:30:52 CBC w/ auto diff 2019 020 [facility], [address] [place] [address], [address], 01/18/2020 11:15:59 CMP, serum or plasma 2019 020 [facility], [address] [place] [address], [id number], 01/18/2020 11:15:59 lipid panel, blood 2019 020 [facility], [address] [place] [address], [id number], 01/18/2020 11:15:59 Referral gastroent erologist referral 2021 022 [email or web address] 10 Jacob Deluna MD, [address] [place], [address], 05/04/2022 09:53:36 Procedures None recorded. Surgeries None recorded. Imaging None recorded. Medication Orders None recorded. Patient TargetsNo targets recorded. Patient InstructionsNo instructions recorded. 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 Problems Name Problem SNOMED Code Status Onset Date Resolution Date Notes Provider Name and Address Organization Details Recorded Time Hearing loss of right ear 395924186 Active 2018 JOEL Michel [address] [place] [address], [phone], [facility] 9 09:20:59 Colitis 30263690 Active 2021 LONNIE PIMENTEL [address] [place] [address], [address], [facility] 2 17:04:03 Anxiety 57454717 Active 2021 LONNIE PIMENTEL [address] [place] [address], [address], [facility] 2 17:25:24 Gout 28839540 Active 2022 LONNIE PIMENTEL [address] [place] [address], [address], [facility] 3 09:22:18 Dysuria 34358785 Active 2022 LONNIE PIMENTEL [address] [place] [address], [address], [facility] 3 10:39:46 Hypotesto steronism 318253633471 4 Active 2023 Basim Duran DO [address] [place] [address], [address], [facility] 4 21:45:15 Diverticu losis of colon 546205129 Active 2023 LONNIE PIMENTEL [address] [place], [address], [facility] 4 14:09:31 Impaired fasting glycemia 483477691 Active [address], [address], [facility] 8 11:19:30 Mixed hyperlipi demia 031998740 Active [address], [address], [facility] 8 11:19:31 Problem Notes None recorded. Procedures Surgical History Date Name Laterality Status Provider Name and Address Organization Details Recorded Time 08/07/19 08 Appendectomy completed Carly ANDRE MichelLORIN [address] [place] [address], [address], [facility] 12/13/2017 12:04:43 Imaging Results [...] Available Not Available Not Available amoxicillin 875 mg-juaneddie grossman clavulanate 125 mg tablet TAKE 1 TABLET [...] in Arterial blood by Pulse oximetry Systolic And Diastolic Provider Name and Address Organization Details Last Updated DateTime 0 163.83 cm 36.9 kg/m2 53727.5 7 g 65 /min 98 % 98 % 100/72 mm[Hg] Vivienne Quiles [facility] 0 09:08:29 Date Recorded Body height Oxygen saturation Oxygen saturation in Arterial blood by Pulse oximetry Heart rate Systolic And Diastolic Provider Name and Address Organization Details Last Updated DateTime 2 163.83 cm 97 % 97 % 81 /min 120/78 mm[Hg] Mae Reed [facility] 2 16:49:28 Date Recorded Body height Body mass index (BMI) Body weight Oxygen saturation Oxygen saturation in Arterial blood by Pulse oximetry Heart rate Systolic And Diastolic Provider Name and Address Organization Details Last Updated DateTime 2 163.83 cm 38.9 kg/m2 325824. 68 g 99 % 99 % 81 /min 110/70 mm[Hg] Mae Reed [facility] 2 10:07:57 Date Recorded Body height Body mass index (BMI) Body weight Heart rate Oxygen saturation Oxygen saturation in Arterial blood by Pulse oximetry Systolic And Diastolic Provider Name and Address Organization Details Last Updated DateTime 3 165.1 cm 38.3 kg/m2 994701. 25 g 64 /min 98 % 98 % 110/80 mm[Hg] Livia Rousseau [facility] 3 09:07:32 Date Recorded Body height Body mass index (BMI) Body weight Heart rate Oxygen saturation Oxygen saturation in Arterial blood by Pulse oximetry Systolic And Diastolic Provider Name and Address Organization Details Last Updated DateTime 4 165.1 cm 39.9 kg/m2 694581. 17 g 71 /min 97 % 97 % 126/88 mm[Hg] Chantal Velasquez [facility] 09:03:45 Social History Question Answer Notes LastModified by Organizat ion Details LastModified Time Tobacco Smoking Status Never Smoker Juliette Edin johnson [facility] 12/13/2017 11:54:12 What Is Your Level Of Caffeine Consumption? Occasional 2 Cups Coffee Per Day Information not available 04/17/2018 What Was The Date Of Your Most Recent Tobacco Screening? 05/27/2024 [email or web address] Information not available 05/27/2024 Sex: Unknown Functional Status Question Answer Note LastModified by Organizat ion Details LastModified Time Do you or have you ever used any other forms of tobacco or nicotine? No [email or web address] Information not available 05/12/2023 What is your level of alcohol consumption? Occasional Information not available 04/17/2018 What is your exercise level? Moderate gym [...] N Blood Transfusion Y Breast Cancer N Hypothyroidism N Lung Disease N Depression N COPD N Defects or Inherited Disease Y Difficulty Swallowing N Anesthesia Complications N Anxiety Disorder N Meniere's disease N Muscle, Joint, or Bone Problems N Vision or Eye Problems N Arthritis N Infertility N Mental Disorder N Cancer N Stroke N Varicosities N Bladder or Kidney Problems N High Cholesterol N Liver Disease N Fibromyalgia N Headaches N Kidney Disease N Allergies/Hayfever Y Heart [...] Immunizations Vaccine Type Date Status Note Provider Nam e and Address Organization Details Recorded Time Tdap 08/07/2018 completed November JOEL Michel [address] [facility], [place], [address], [facility] 01/14/2019 09:11:03 Past Encounters Encounter ID Performer Location Encounter Start Date Encounter Closed Date Diagnosis/Indication Diagnosis SNOMED-CT Code Diagnosis ICD10 Code Diagnosis Note [id number] Basim Duran [facility] [address] [facility] [address] 12/13/2017 11:29:48 12/13/2017 14:42:01 Pain of left ankle joint 2278570291 1464589 M25.572 will do xr and consider ortho if xr is normal Family his tory of ischemic heart disease 224916768 Z82.49 will get routine blood work Serous otitis media 8032 7007 H65.90 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, 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 Allergic rhinitis 535649 04 J30.9 would like to consider allergy shots [id number] Basim Duran [facility] [address] [facility] [address] 01/12/2018 09:31:14 01/12/2018 10:36:29 Impaired fasting glycemia 438623113 R73.01 diet and exercise discussed for 30 minutes Mixed hyperlipidemia 267 186207 E78.2 diet and exercise discussed for 30 minutes fish oil mediterran chet diet discussed [id number] Basim Duran [facility] [address] [facility] [address] 04/17/2018 10:48:58 04/17/2018 11:56:15 Adult health examination 572133036 Z00.01 has evidence of subjective hearing loss otherwise is doing well cont to lose weight but is trying for 200 Active or passive immunization 730294720 Z23 need to get tdap in october Hearing loss 73708764 H9 0.11 was sched in past but no followup or was not given date for appt [id number] Basim Duran [facility] [address] [facility] [address] 07/16/2018 08:45:57 07/16/2018 09:26:25 Impaired fasting glycemia 793856561 R73.01 continue healthy diet and exercise Mixed hyperlipidemia 267 694493 E78.2 cholestero l slightly worse than prior labs in december with an improvemen t of HDL from 41 to 45 continue healthy diet, fish oil, mediterran chet diet discussed Body mass index 30+ - obesity 209311096 Z68.36 has lost weight about 10lbs from january per last visit, he is trying to reach 200 lbs [id number] Basim Duran [facility] [address] [facility], [place] [address] 01/14/2019 08:54:31 01/14/2019 10:04:00 Adult health examination 066834783 Z00.00 Active or passive immunization 195132968 Z23 utd Body mass index 30+ - obesity 964428295 Z68.36 has lost weight about 10 lbs from january per last visit, he is trying to reach 200 lbs Mixed hyperlipidemia 267 100434 E78.2 has been eating healthy Impaired f asting glycemia 575754513 R73.01 continue healthy diet and exercise [id number] Basim Duran [facility] [address] [facility], [place] [address] 04/26/2019 10:52:43 04/26/2019 11:23:01 Pain in toe 195278393 M79.672 [id number] Basim Duran [facility] [address] [facility], [place] [address] 01/17/2020 08:53:06 01/17/2020 10:53:47 Adult health examination 373990368 Z00.00 no concerns today BP is excellent today Active or passive immunization 365257066 Z23 up to date [id number] Basim Duran [facility] [address] [facility], [place] [address] 05/02/2022 16:11:52 05/03/2022 08:24:49 Colitis 99114714 K52.838 did advise a colonoscop y Anxiety 15305632 F41.1 would just like have this documented discussed coping strategies [id number] Basim Duran [facility] [address] [facility] [address] [facility] [place] [address] 05/11/2022 10:01:25 05/11/2022 10:44:56 Active or passive immunization 482553342 Z23 up to date Adult heal th examination 019637464 Z00.00 no concerns today BP is excellent today [id number] Basim Galavizvelvet [facility] [address] [facility] [address] 05/12/2023 08:56:37 05/12/2023 11:13:57 Mixed hyperlipidemia 819014225 E78.2 stable Adult heal th examination 892003546 Z00.00 no concerns today BP is excellent today [id number] Basim Galavizvelvet [facility] [address] [facility] [address] 05/27/2024 08:51:38 05/27/2024 09:48:32 Active or passive immunization 394891320 Z23 up to date Adult heal th examination 584487100 Z00.00 no concerns today BP is excellent today Depression screening 171 515018 Z13.31 SCREENING NEGATIVE Body mass index 30+ - obesity 279701075 Z68.39 discussed optionssee ing uro soon, possible HRT with T which could helpwill fu with uro before moving forward with any issues Health Concerns Section Related Observation LastModified by Organization Detai ls LastModified Time None Recorded Concern Status LastModified by Organization Details LastModified Time None Recorded Advance Directives Directive None Recorded Payers Insurance Date Sequence Insurance Name Policy Number Policy Lowery Covered Member ID Lowery Member ID Guarantor Name 05/28/2024 1 [place] [facility] [id number] Jacob South [id number] Jacob South 05/27/2024 1 [employer] [id number] Jacob South [id number] Jacob South 05/27/2024 1 [facility] [id number] Jacob South [id number] Jacob South Notes Date Note Type Note [...] right ear) Vision:no vision problems LONNIE PIMENTEL [address] [place], [address], [facility] 01/17/2020 09:28:30 2 text/html ER [...] patient) this weekend at his friend's bachelor libertarian the patient developed abdominal pain and hematocheziatwo drinks nothing abnormal or concerning discussed stress affects on his person due to his jobdiscussed an event at work that happened to him that has changed the way that he processes stress, which is poorer since that incident discussed the stresses at work that are probable causing more of the abdominal upsetdiscussed coping mechanisms LONNIE PIMENTEL [address] [place], [address], [facility] 05/02/2022 17:34:45 2 text/html Annual WellnessReported bypatient.Diet and Nutrition:healthy diet; [...] ear only(right) Vision:no vision problems LONNIE PIMENTEL [address] [place], [address], [facility] 05/11/2022 10:35:34 3 text/html Annual WellnessReported bypatient.Diet and Nutrition:healthy diet; [...] endo, has an appointment LONNIE PIMENTEL [address] [place], [address], [facility] 05/12/2023 09:33:53 4 text/html Annual [...] been relatednoted that 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 Herreraactually up ten pounds seeing urologist (not endo) about this ongoing issuewithout much changecurrently on tadalafil LONNIE PIMENTEL [address] [place] [address], [place], [address], [facility] 05/27/2024 09:47:54
== END 2025-02-12 08:45 | disposition home or self-care (01) ==
LOC: HO.HUSH 08:25
PROVIDERS: PCP Internal Medicine; Visit Provider Urology
DX: E29.1 Testicular hypofunction (principal); R68.82 Decreased libido
CPT/HCPCS: 99213